=== PATIENT | male | born 1960 | race Caucasian/White ===

== ENCOUNTER 2024-01-20 14:05 | Emergency (ER) | payer MEDICARE, SELFPAY ==
[2024-01-20 14:07] VITALS: BP 157/103
[2024-01-20 14:48] LABS: Hematocrit 51.6 % (39.0-52.0); Hemoglobin 18.5 g/dL (13.0-18.0); Mean Corp Hgb Conc. 35.9 g/dL (33.0-37.0); Mean Corpuscular Hgb 33.5 pg (27.0-31.0); Mean Corpuscular Volume 93.5 fL (80.0-94.0); Mean Platelet Volume 10.1 fL (7.4-10.4); Platelet Count 123 10^3/uL (130-400); Red Blood Cell Count 5.52 10^6/uL (4.70-6.10); Red Cell Dist. Width 12.1 % (11.5-14.5); White Blood Cell Count 4.2 10^3/uL (4.8-10.8)
[2024-01-20 14:59] LABS: COVID-19 Antigen Negative (Negative)
[2024-01-20 15:00] LABS: ALT (SGPT) 480 U/L (0-50); AST (SGOT) 524 U/L (17-59); Albumin 4.4 g/dl (3.5-5.0); Alkaline Phosphatase 56 U/L (38-126); Blood Urea Nitrogen 16 mg/dl (9-20); Calcium 9.5 mg/dl (8.4-10.2); Carbon Dioxide 27 mmol/L (22-30); Chloride 104 mmol/L (98-107); Glucose 126 mg/dl (70-99); Potassium 4.5 mmol/L (3.5-5.1); Sodium 142 mmol/L (135-145); Total Bilirubin 1.6 mg/dl (0.2-1.3); Total Protein 7.2 g/dl (6.3-8.2); eGFR > 60.00
[2024-01-20 15:26] LABS: % Basophils 0.5 % (0-2); % Eosinophils 0.9 % (0-6); % Immature Granulocytes 0.2 % (0-0.5); % Lymphocytes 40.5 % (20.5-51.1); % Monocytes 7.8 % (1.7-9.3); % Neutrophils 50.1 % (42.2-75.2); Absolute Lymphocytes 1.7 10^3/uL (1.2-3.4); Absolute Monocytes 0.3 10^3/uL (0.1-0.6); Absolute Neutrophils 2.1 10^3/uL (1.4-6.5); Nucleated Red Blood Cells % 0 % (-)
--- NOTE | 2024-01-20 15:31 | ED.GENMED ---
History of Present Illness
General
Chief Complaint: Cold/Flu/URI Symptoms
Source: patient
Time Seen by Provider: 01/20/24 15:14
History of Present Illness
History of Present Illness:
64yoM with a history of hyperlipidemia not compliant with medications presenting with his for evaluation of URI symptoms x 1 week. He reports 1 week of malaise, fatigue, and decreased appetite. He has not been eating much which is unusual for
him. He has lost 7 pounds in the past week due to his symptoms. He reports feeling hot and cold but denies ever having a fever. He is also having about 8 episodes of diarrhea daily. He was at a backyard libertarian the day before his symptoms started. He
denies any abdominal pain, chest pain, shortness of breath, dysuria, rashes, joint swelling, tick bites. He has a chronic cough which is no worse than usual. No known sick contacts. He traveled to [place] 2 months ago but otherwise there has been no
recent travel.
Phy Exam
General Physical Exam
General Presentation: well appearing and no apparent distress
General age: appears stated age
General Skin: warm and dry
General Habitus: normal
General Mental: alert
Cardiovascular Exam
Cardiovascular Exam: regular rate/rhythm
Pulmonary Exam
Pulmonary Exam: lungs clear, no respiratory distress, no crackles and no wheezing
Gastrointestinal Exam
Gastrointestinal Exam: non tender, soft and non distended
Skin Exam
Skin Exam: normal color and warm/dry
Psychiatric Exam
Psychiatric Exam: normal mood/affect
Course
Orders/Labs/Results
Orders:
Orders
01/20/24 14:10
Chest [CR Chest - 2 Views ] Urgent
Comment:
Reason For Exam: cough
01/20/24 14:23
COVID-19 Antigen Urgent
Source: Nasal Swab
Complete Blood Count/With Diff Urgent
Comprehensive Metabolic Panel Urgent
Influenza A+B Rapid Molecular Urgent
SAL Source: Nasal Swab
Specimen Description:
01/20/24 15:29
0.9% Sodium Chloride 1000 ml [Nss] 1,000 ml IV BOLUS
US Abdomen Complete/Upper Urgent
Comment:
Reason For Exam: Transaminitis
01/20/24 16:00
Hepatitis A IgM Antibody Urgent
Hepatitis B Core Ab, IgM Urgent
Hepatitis B Surface Antibody Urgent
Hepatitis B Surface Antigen Urgent
Hepatitis C Antibody Urgent
Lyme Progressive Urgent
Monotest Urgent
01/20/24 17:18
PTT Urgent
Prothrombin Time Urgent
Tylenol [Acetaminophen] Urgent
01/20/24 18:44
Stool Culture Urgent
SAL Source: Feces/Stool
Specimen Description:
Date Specimen was Collected: 01/20/24
Time Specimen was Collected: 18:42
Abnormal Lab Results
01/20/24 01/20/24
14:23 17:18
WBC 4.2 L 10^3/uL
(4.8-10.8)
Hgb 18.5 H g/dL
(13.0-18.0)
MCH 33.5 H pg
(27.0-31.0)
Plt Count 123 L 10^3/uL
(130-400)
Glucose 126 H mg/dl
(70-99)
Total Bilirubin 1.6 H mg/dl
(0.2-1.3)
AST 524 H* U/L
(17-59)
ALT 480 H U/L
(0-50)
Acetaminophen < 10 L ug/ml
(10-30)
01/20/24 14:23
01/20/24 14:23
Vital Signs
Initial and Last Documented VS:
Initial Vital Signs
Temp Pulse Resp BP Pulse Ox
98.1 F 100 20 157/103 98
01/20/24 14:07 01/20/24 14:07 01/20/24 14:07 01/20/24 14:07 01/20/24 14:07
Last Documented Vital Signs
Temp Pulse Resp BP Pulse Ox
98.1 F 71 18 143/85 97
01/20/24 18:00 01/20/24 18:00 01/20/24 18:00 01/20/24 18:00 01/20/24 18:00
MDM/Problems Addressed
Differential Diagnosis Includes:
64yoM here with URI symptoms, diarrhea, and fatigue x 1 week. Was at a libertarian the day before symptoms started. No fevers and he is afebrile on arrival. Remainder of vitals stable. He is well appearing in no distress. Exam reassuring. Differential
diagnosis includes but is not limited to: viral illness, tick-borne illness, gastroenteritis, dehydration
Initial ED plan: Labs obtained in triage which reveals a transaminitis with AST 524, ALT 480, and total bilirubin 1.6. Mild thrombocytopenia also noted. COVID/flu negative. He is taking Tylenol about 2x daily. No alcohol use. No abdominal pain and
he has no RUQ tenderness on exam. Will check coags, Tylenol level, hepatitis panel, mononucleosis screen, Lyme testing, stool culture, and RUQ ultrasound. IV fluid bolus.
*Critical Care Note
Total Time (30-74mins, 75-104mins- exclusive of procedures): Not Applicable
Update Note
Update Note:
Coags normal showing normal synthetic function of liver. Tylenol level normal. Monospot negative. RUQ ultrasound shows hepatic steatosis and a gallbladder polyp but no acute findings. CXR is clear. Vitals remain stable and patient is clinically well
appearing. No indication for hospitalization at this time. Unclear etiology of symptoms, possibly viral vs. tick borne vs. hepatitis A. Supportive care discussed. He was advised to call his PCP tomorrow for close f/u. ED return precautions
discussed. He expressed understanding and is agreeable to plan. Patient discharged in stable condition.
ED Attending Note
-
Portions of this chart may have been created with voice recognition software.� Occasional wrong word or��sound alike� substitutions may have occurred due to the inherent limitations of voice recognition software.
Discharge Plan
Departure
Patient Disposition: Home (Routine Discharge)
Date of Disposition: 01/20/24
Time of Disposition: 18:12
Patient with high blood pressure during this ER visit?: Yes
Discharge Problem:
Diarrhea, Malaise, Transaminitis
Instructions: Diarrhea, Adult ED
Prescriptions:
No Action
acetaminophen [Tylenol Extra Strength] 500 mg Tablet
1,000 mg PO Q6HPRN PRN (Reason: mild pain)
fluticasone propionate [Flonase] 50 mcg/actuation [place],Suspension
1 spray INTRANASAL DAILY
Referrals:
Mono Bartlett MD [Family Provider] -
Dimitris Torres MD [Active] -
Activity Restrictions/Additional Instructions:
Please call your family doctor tomorrow to schedule a follow-up appointment. You should also follow-up with gastroenterology for your elevated liver enzymes.
Return to the ER with any new or worsening symptoms.
Interventions
Interventions:
*Risk Screen - Suicide Last Done: 01/20/24 15:43
*General Assessment Last Done: 01/20/24 15:43
*Neglect/Abuse Screening Last Done: 01/20/24 15:43
ED- Fall Risk Assessment Last Done: 01/20/24 15:42
*ED COVID-19 Vaccine History Last Done: 01/20/24 15:43
*Nursing Disposition Last Done: 01/20/24 19:01
ED- Pulmonary Assessment Last Done: 01/20/24 15:43
Discharge Date and Time
Discharge Date/Time: 01/20/24 19:03
Print Language: POLISH
[2024-01-20 15:41] VITALS: BMI 35.2
[2024-01-20 16:00] VITALS: BP 143/83
[2024-01-20] MEDS: NSS 1000 IV (16:09)
--- NOTE | 2024-01-20 16:40 | PHANOTE ---
med rec tech(01/20/24)-Patient states he is supposed to take Lipitor 40mg QD, but he does not. States last taken dose was months ago.
[2024-01-20 17:37] LABS: INR 1.03; PT 13.3 Sec (11.4-14.6)
[2024-01-20 17:38] LABS: APTT 27.3 Sec (23.4-35.0)
[2024-01-20 17:44] LABS: Acetaminophen < 10 ug/ml (10-30)
[2024-01-20 17:46] LABS: Monotest Negative (Negative)
[2024-01-20 18:00] VITALS: BP 143/85
[2024-01-20 18:49] LABS: Hepatitis B Surface Antigen Negative (Negative)
[2024-01-20 19:06] LABS: Hepatitis B Surface Antibody Negative; Hepatitis C Antibody Negative (Negative)
[2024-01-20 21:47] LABS: Hepatitis A IgM Antibody Negative (Negative); Hepatitis B Core Ab, IgM Negative (Negative)
[2024-01-23 13:55] LABS: Lyme Antibody Screen, EIA Negative (Negative)
== END 2024-01-20 19:03 | disposition home or self-care (01) ==
LOC: EMR 14:05
PROVIDERS: Emergency Medicine; Physician Assistant; EMERGENCY PHYSICIAN Emergency Medicine; FAMILY PHYSICIAN Family Medicine
DX: R53.81 Other malaise (principal); R19.7 Diarrhea, unspecified; Z11.52 Encounter for screening for COVID-19; R74.01 Elevation of levels of liver transaminase levels; R03.0 Elevated blood-pressure reading, without diagnosis of hypertension; K82.4 Cholesterolosis of gallbladder; K76.0 Fatty (change of) liver, not elsewhere classified; E78.5 Hyperlipidemia, unspecified; Z91.148 Patient's other noncompliance with medication regimen for other reason
CPT/HCPCS: 99284; 96360; 71046; 76700; 80053; 80143; 85025; 85610; 85730; 86308; 86618; 86705; 86706; 86709; 86803; 87045; 87046; 87077; 87340; 87427; 87502; 87811

== ENCOUNTER 2024-05-15 06:19 | Day surgery (SDC) | payer MEDICARE, SELFPAY | END 2024-05-15 13:53 | disposition home or self-care (01) | LOC: GI 06:19 | PROVIDERS: ATTENDING PHYSICIAN Internal Medicine Gastroenterology | DX: D12.4 Benign neoplasm of descending colon (principal); D12.5 Benign neoplasm of sigmoid colon; K57.30 Diverticulosis of large intestine without perforation or abscess without bleeding; K64.8 Other hemorrhoids; R19.4 Change in bowel habit; K22.89 Other specified disease of esophagus; K20.90 Esophagitis, unspecified without bleeding; K20.0 Eosinophilic esophagitis; K31.A11 Gastric intestinal metaplasia without dysplasia, involving the antrum; K29.80 Duodenitis without bleeding; K31.7 Polyp of stomach and duodenum; K29.70 Gastritis, unspecified, without bleeding; R13.10 Dysphagia, unspecified | CPT/HCPCS: 45385; 45380; 43239; 88305; 88342 ==